=== PATIENT | female | born 1995 | race Caucasian/White ===

== ENCOUNTER 2018-02-27 22:39 | Emergency (ER) | payer SELFPAY ==
[~2018-02-27] VITALS: Ht 165.1 cm; Wt 81.2 kg
[2018-02-27 23:12] VITALS: Ht 165.1 cm; Wt 81.2 kg
[2018-02-28 01:48] LABS: BASOPHIL % 0.5 % (0-2); PLATELET COUNT 286 x10^3mcL (130-400); RED CELL DISTRIBUTION WIDTH 12.5 % (11.5-14.5)
[2018-02-28 02:10] LABS: microscopic required? NO
[2018-02-28 02:29] LABS: urine erythrocyte NEGATIVE (NEGATIVE)
[2018-02-28 03:28] VITALS: BP 114/66
== END 2018-02-28 03:28 | disposition home or self-care (01) ==
LOC: ED 22:39
PROVIDERS: Emergency Medicine
DX: O20.9 Hemorrhage in early pregnancy, unspecified (principal); T78.1XXA Other adverse food reactions, not elsewhere classified, initial encounter; X58.XXXA Exposure to other specified factors, initial encounter; Z3A.01 Less than 8 weeks gestation of pregnancy
CPT/HCPCS: 36415